=== PATIENT | female | born 1980 | race Caucasian/White ===

== ENCOUNTER 2018-06-01 07:42 | Day surgery (SDC) | payer OTHER ==
[2018-06-01] MEDS ORDERED: NS 1,000 ML IV ONE (07:44)
[2018-06-01] MEDS ORDERED: DIAZEPAM 5 MG TAB PO ONE (07:44)
[2018-06-01] MEDS ORDERED: ceFAZolin 2 GM/DEXTROSE 100 ML IV ONE (07:44)
[2018-06-01] MEDS ORDERED: diphenhydrAMINE 25 MG CAP PO ONE (07:44)
[2018-06-01] MEDS ORDERED: BACITRACIN IRRIGATION/NS 50,000 UNITS/1,000 ML BTL IRR ONE (07:44)
[2018-06-01] MEDS ORDERED: LIDOCAINE 1% 300 MG/30 ML SDV ONE ×2 (08:11→09:16)
[2018-06-01] MEDS ORDERED: BUPIVACAINE 0.75% 10 ML SDV ONE ×2 (08:12→09:16)
[2018-06-01 08:46] LABS: PLATELET COUNT 272 10^3/uL (150-400)
--- NOTE | 2018-06-01 08:49 | PDGENHP ---
History & Physical Chief Complaint: Generator change - Medtronic recall History of Present Illness: History of VSD and syncope s/p PPM 13 months ago. Generator change second to Medtronic recall Relevant Physical Exam: General: A&Ox4, no apparent distress. Respiratory: CTA. Cardiac: Regular rate and rhythm, S1, S2 Cardiorespiratory Assessment: Risks of generator change reviewed in detail with patient and her . Proceed with generator change as planned today
--- NOTE | 2018-06-01 08:54 | PDANEPAE ---
ANE History of Present Illness Pacemaker generator exchange ANE Past Medical History - Cardiovascular History Hx Hypertension: No Hx Arrhythmias: No Hx Chest Pain: No Hx Coronary Artery / Peripheral Vascular Disease: No Hx CHF / Valvular Disease: No Hx Palpitations: No Cardiovascular History Comment: VSD repair as child - Pulmonary History Hx COPD: No Hx Asthma/Reactive Airway Disease: No Hx Recent Upper Respiratory Infection: No Hx Oxygen in Use at Home: No Hx Sleep Apnea: No ANE Review of Systems Review of systems is: negative Review of Systems: - Exercise capacity METS (RN): 4 METS ANE Patient History - Allergies Allergies/Adverse Reactions: No Known Allergies Allergy (Unverified 06/01/18 07:44) - Anes Hx Anes Hx: post operative nausea - Smoking Hx Smoking Status: Never smoked Marijuana use: No - Alcohol Use Alcohol Use: Rarely - Family Anes Hx Family Anes Hx: none ANE Labs/Vital Signs - Labs Result Diagrams: 06/01/18 08:00 06/01/18 08:00 - Vital Signs Height: 162.56 cm Weight: 67.585 kg ANE Physical Exam - Airway Neck exam: FROM Mallampati Score: Class 1 Mouth exam: normal dental/mouth exam - Pulmonary Pulmonary: no respiratory distress, no rales or rhonchi - Cardiovascular Cardiovascular: regular rate and rhythym, systolic murmur - ASA Status ASA Status: II ANE Anesthesia Plan Anesthesia Plan: GA w LMA
[2018-06-01 08:56] LABS: INR 1.09 (0.83-1.16); PROTIME(PATIENT) 14.3 SEC (12.0-15.0)
[2018-06-01] MEDS ORDERED: SCOPOLAMINE HYDROBROMIDE 1 MG/3 DAYS PATCH TD ONE (08:57)
[2018-06-01] MEDS ORDERED: MIDAZOLAM 2 MG/2 ML VIAL ONE (08:57)
[2018-06-01] MEDS ORDERED: PROPOFOL 200 MG/20 ML VIAL ONE (08:59)
[2018-06-01] MEDS ORDERED: fentaNYL 100 MCG/2 ML INJ ONE ×2 (08:59)
[2018-06-01] MEDS ORDERED: PROPOFOL/EMULSION 500 MG/50 ML BOTTLE IV ONE (08:59)
[2018-06-01] MEDS ORDERED: ONDANSETRON 4 MG/2 ML VIAL ONE (08:59)
[2018-06-01] MEDS ORDERED: DEXAMETHASONE 4 MG/ML VIAL ONE (08:59)
[2018-06-01] MEDS ORDERED: LIDOCAINE 2% 5 ML SDV ONE (09:00)
[2018-06-01] MEDS ORDERED: GLYCOPYRROLATE 0.2 MG/1 ML VIAL ONE (09:00)
[2018-06-01] MEDS ORDERED: PHENYLEPHRINE HCL 100 MCG/ML SYR ONE (10:49)
[2018-06-01] MEDS ORDERED: ACETAMINOPHEN 500 MG TAB PO PRN (10:59)
[2018-06-01] MEDS ORDERED: HYDROCODONE/APAP 5/325 TAB PO PRN (10:59)
[2018-06-01] MEDS ORDERED: oxyCODONE IR 5 MG TAB PO PRN (10:59)
[2018-06-01] MEDS ORDERED: HYDROmorphONE/DILAUDID 2 MG/ML INJ IVP PRN (10:59)
[2018-06-01] MEDS ORDERED: PROMETHAZINE HCL 25 MG/ML INJ IVP PRN (10:59)
[2018-06-01] MEDS ORDERED: ONDANSETRON 4 MG/2 ML VIAL IVP PRN (10:59)
[2018-06-01] MEDS ORDERED: fentaNYL 100 MCG/2 ML INJ IVP PRN (10:59)
[2018-06-01] MEDS ORDERED: NALOXONE HCL 0.4 MG/ML INJ IVP PRN (10:59)
--- NOTE | 2018-06-01 11:00 | POSTANESTH ---
Post Anesthetic Evaluation Cardiovascular Status: Normal, Stable Respiratory Status: Normal, Stable Level of Consciousness/Mental Status: Can Participate in Eval Pain Control: Adequate, Prn Tx Ordered Nausea/Vomiting Control: Adequate, Prn Tx Ordered Complications Possibly Related to Anesthesia: None Noted
--- NOTE | 2018-06-01 13:15 | EPPROC ---
Electrophysiology Procedure Note: PROCEDURE PERFORMED: 1. AV Pacemaker generator change 2. Temporary pacemaker INDICATION: Pacemaker generator at DIONE Bradycardia Medtronic device advisory I was asked to do this patient by patients EP Dr. Sha Rojas due to patients insurance not covering procedures at [facility] PROCEDURE NOTE: Patient presented to the cardiac catheterization laboratory in a fasting, postabsorptive state. Dr. Luna administered LMA. Patient has no escape rhythm. Temporary pacemaker was placed via 5Fr venous sheath in RFV. The left infraclavicular area was prepped and draped in the usual sterile fashion. Lidocaine plus bupivacaine was used for local anesthesia. Using a combination of blunt and sharp dissection and electrocautery, the dissection was carried down to the prepectoral fascia and the existing pacemaker pocket was opened. The pacemaker generator was disconnected from the leads and the lead thresholds and impedance were checked. The pacemaker pocket was copiously irrigated with antibiotic solution. The pocket was again inspected for any bleeding. The leads were attached to the pacemaker securely. The pacemaker was inserted into the pocket and secured in place with a nonabsorbable suture. The pacemaker pocket was closed in 3 layers with absorbable monocryl sutures and gabo. Appropriate dressing was applied. The patient left the cardiac catheterization laboratory in stable condition. Serial Numbers: 1. Device Medtronic Dai XT DR [id number] SN [id number] 2. Atrial Lead Medtronic 5076-45 [id number], 05/04/2017 3. Ventricular Lead Medtronic 5076-52 SN [id number] Stimulation Thresholds & Impedance Measurements: 1. Atrial Lead P 2.3 mV 380 ohm 0.5 V 0.4 ms 2. Ventricular Lead 323 ohm 1.25 V 0.4 ms Karl Pacing Parameters 1. Pacing mode DDD 2. Lower rate 60 ppm 3. Upper tracking rate 130 ppm Patient Problems: Problems Problem Status Onset Heart block AV complete Acute
--- NOTE | 2018-06-01 17:02 | CPEKG ---
Test Reason : OPEN Blood Pressure : / mmHG Vent. Rate : 077 BPM Atrial Rate : 078 BPM P-R Int : 192 ms QRS Dur : 133 ms QT Int : 430 ms P-R-T Axes : 094 268 096 degrees QTc Int : 487 ms A-V dual-paced rhythm with some inhibition Confirmed by Sade Maurer ([id number]) on 06/01/2018 5:02:39 PM Referred By: Rolan Anderson Confirmed By:Sade Maurer
--- NOTE | 2018-06-01 17:06 | CPEKG ---
Test Reason : OPEN Blood Pressure : / mmHG Vent. Rate : 060 BPM Atrial Rate : 060 BPM P-R Int : 207 ms QRS Dur : 144 ms QT Int : 482 ms P-R-T Axes : 086 -86 091 degrees QTc Int : 482 ms Atrial-ventricular dual-paced rhythm Confirmed by Sade Maurer ([id number]) on 06/01/2018 5:06:40 PM Referred By: Rolan Anderson Confirmed By:Sade Maurer
== END 2018-06-01 17:31 | disposition home or self-care (01) ==
LOC: FCATH 07:42
PROVIDERS: ATTEND Internal Medicine Cardiovascular Disease
DX: T82.198A Other mechanical complication of other cardiac electronic device, initial encounter (principal); Z45.010 Encounter for checking and testing of cardiac pacemaker pulse generator [battery]; R00.1 Bradycardia, unspecified
CPT/HCPCS: C1785; J0690; J1100; J2250; J2370; J2405; J2704; J3010